=== PATIENT | female | born 1995 ===

== ENCOUNTER → 2021-10-13 12:46 | Outpatient (CLI) | payer BC, SELFPAY ==
--- NOTE | ~2021-10-13 | US_ITS ---
EXAMINATION: US pelvic complete w TV DATE: 10/13/2021 13:23 INDICATION: Pelvic and perineal pain TECHNIQUE: Multiple transabdominal and endovaginal sonographic images of the pelvis were obtained. COMPARISON: None. FINDINGS: The uterus measures 6.4 x 2.6 x 3.8 cm. The endometrial complex measures 4 mm. The right ov usman measures 3.0 x 2.4 x 2.3 cm. The left ovary measures 2.9 x 1.4 x 1.5 cm. There is normal vascular flow in the ovaries. There is no free fluid in the pelvis. IMPRESSION: 1. No sonographic correlate for the patient's symptoms. Reviewed, dictated and finalized at location B.
== END ==
PROVIDERS: Visit Provider Obstetrics & Gynecology
DX: R10.2 Pelvic and perineal pain (principal)
CPT/HCPCS: 76830; 76856